=== PATIENT | female | born 1990 | race Caucasian/White ===

== ENCOUNTER 2016-06-10 12:12 | Day surgery (SDC) | payer OTHER ==
[2016-06-10] MEDS ORDERED: FENTANYL CITRATE INJ/PF 100 MCG/2 ML AMPUL ONE ×2 (12:37)
[2016-06-10] MEDS ORDERED: MIDAZOLAM 2 MG/2 ML INJ ONE (12:37)
[2016-06-10] MEDS ORDERED: DEXAMETHASONE SOD PHOS INJ 10 MG/1 ML VIAL ONE (12:38)
[2016-06-10] MEDS ORDERED: MORPHINE SULFATE 10 MG/ML INJ ONE (12:38)
[2016-06-10] MEDS ORDERED: ONDANSETRON HCL INJ/PF 4 MG/2 ML SDV ONE (12:38)
[2016-06-10] MEDS ORDERED: LIDOCAINE 2% INJ-PF (20 MG/ML) 10 ML AMPUL ONE (12:38)
[2016-06-10] MEDS ORDERED: PROPOFOL INJ 200 MG/20 ML VIAL IV ONE (12:38)
[2016-06-10] MEDS ORDERED: OXYMETAZOLINE HCL 0.05% NASAL SPRAY 15 ML BOTTLE ONE (12:38)
[2016-06-10] MEDS ORDERED: SUCCINYLCHOLINE CHLORIDE INJ 200 MG/10 ML VIAL ONE (12:39)
--- NOTE | 2016-06-10 14:23 | OPERATIVE REPORT E ---
Operative Report NAME: BARNEY JAMES : 1990 AGE: 25Y DATE OF SURGERY: 06/10/2016 ROOM: INDICATIONS FOR THE PROCEDURE: This is a 25-year-old female with a history of chronic tonsillitis. Please see her outpatient medical record for complete details regarding her history and examination. PREOPERATIVE DIAGNOSIS: Chronic tonsillitis. POSTOPERATIVE DIAGNOSIS: Chronic tonsillitis. PROCEDURE PERFORMED: Tonsillectomy. PRIMARY SURGEON: YANCY MCKEON M.D. FINDINGS: Bilateral, symmetric, and cryptic tonsils. ESTIMATED BLOOD LOSS: 2 mL. DESCRIPTION OF THE OPERATION: After properly identifying the patient, obtaining informed consent, and verifying the surgical site, the patient was brought to the main operating room and placed in the supine position, and general endotracheal anesthesia was obtained in the standard fashion. The bed was turned 90 degrees. The patient's neck was then extended via shoulder roll and draped in the usual manner. A formal surgical time-out was then called. Next, a Gary-Arron mouth gag with slotted tongue depressor was inserted, opened, and suspended from the Leon stand. There was no evidence of bifid uvula or submucosal cleft palate by inspection and palpation. An electrocautery-assisted tonsillectomy was then performed. The right tonsil was grasped with a curved Allis clamp and retracted medially. An incision was made at the superior pole. A subcapsular plane of dissection was then developed, and the tonsil was excised without complication. Hemostasis within the fossa was then obtained using suction cautery. A similar procedure was then performed for the patient's left tonsil. Oropharynx was irrigated with normal saline and suctioned dry. The mouth gag was removed. The mouth, teeth, lips, and gums were inspected and found to be free of any surgical trauma. The patient was then returned to Anesthesia. She was awoken in the operating room and taken to the PACU in stable condition having tolerated the procedure well. DICTATING PHYSICIAN: YANCY MCKEON M.D. [id number] PHY#: [id number] ID: [id number] JOB#: [id number] ACCT: [id number] cc:YANCY MCKEON M.D. >
[2016-06-10] MEDS ORDERED: OXYCODONE-ACETAMINOPHEN 5-325 MG TABLET ONE (14:26)
== END 2016-06-10 15:10 | disposition home or self-care (01) ==
LOC: SC 12:12
PROVIDERS: ATTEND Otolaryngology
PROC: 0CTPXZZ Resection of Tonsils, External Approach (ICD-10-PCS; principal; 2016-06-10 13:00)
DX: J35.01 Chronic tonsillitis (principal); J45.909 Unspecified asthma, uncomplicated; F90.9 Attention-deficit hyperactivity disorder, unspecified type; Z79.899 Other long term (current) drug therapy; Z87.891 Personal history of nicotine dependence
CPT/HCPCS: 88304 ×2; 42826; J2250; J3010; J3490 ×2; J0330; J2405; J2704; J1100; 170; J2270

== ENCOUNTER 2017-10-13 03:06 | Emergency (ER) | payer OTHER ==
--- NOTE | 2017-10-13 05:05 | ER Document Report ---
ED Medical Screen (RME) - General Chief Complaint: Abdominal Pain Stated Complaint: STOMACH PAIN Time Seen by Provider: 10/13/17 05:03 Mode of Arrival: Ambulatory Information source: Patient Notes: 27-year-old female patient presenting with chief complaint of abdominal pain, flank pain and vomiting. Patient reports that she woke up around midnight with severe mid to upper abdominal pain, bilateral flank pain and began vomiting. Patient denies any fever or urinary symptoms. Patient also reports several days of diarrhea. Exam: Tenderness to palpation to upper abdomen/epigastric area, no tenderness to palpation to right or left lower quadrants. No CVA tenderness. I have greeted and performed a rapid initial assessment of this patient. A comprehensive ED assessment and evaluation of the patient, analysis of test results and completion of the medical decision making process will be conducted by additional ED providers. Dictation of this chart was performed using voice recognition software; therefore, there may be some unintended grammatical errors. TRAVEL OUTSIDE OF THE [place] IN LAST 30 DAYS: No - Related Data Allergies/Adverse Reactions: No Known Allergies Allergy (Unverified 10/13/17 03:10) Past Medical History - Past Medical History Cardiac Medical History: Denies: Hx Heart Attack, Hx Hypertension Pulmonary Medical History: Reports: Hx Asthma - SPORTS INDUCED H[employer] SCHO[employer],NO PX SINCE ACTIVE DUTY Neurological Medical History: Denies: Hx Cerebrovascular Accident, Hx Seizures GI Medical History: Denies: Hx Hepatitis, Hx Hiatal Hernia, Hx Ulcer Infectious Medical History: Denies: Hx Hepatitis Past Surgical History: Denies: Hx Hysterectomy, Hx Mastectomy, Hx Open Heart Surgery, Hx Pacemaker Physical Exam - Vital signs Vitals: Temp Pulse Resp BP Pulse Ox 97.8 F 51 L 16 139/93 H 100 10/13/17 03:13 10/13/17 03:13 10/13/17 03:13 10/13/17 03:13 10/13/17 03:13 Course - Vital Signs Vital signs: Temp Pulse Resp BP Pulse Ox 97.8 F 51 L 16 139/93 H 100 10/13/17 03:13 10/13/17 03:13 10/13/17 03:13 10/13/17 03:13 10/13/17 03:13 Doctor's Discharge - Discharge Referrals: LENNY BRIONES PA [Primary Care Provider] - Follow up as needed
--- NOTE | 2017-10-13 05:25 | ER Document Report ---
ED GI/ - General Mode of Arrival: Ambulatory Information source: Patient TRAVEL OUTSIDE OF THE [place] IN LAST 30 DAYS: No <DOROTHY CALDWELL - Last Filed: 10/13/17 05:30> <YOHANNES LU - Last Filed: 10/13/17 06:55> <MADDY CALL - Last Filed: 10/24/17 20:59> - General Chief Complaint: Abdominal Pain Stated Complaint: STOMACH PAIN Time Seen by Provider: 10/13/17 05:03 Notes: 27 y.o female presents to the ED with abd pain. She reports some diarrhea of onset a couple days ago and the onset of epigastric abdominal pain and vomiting around midnight last night. She describes her epigastric pain as an aching pain and reports a movement of pain to her back bilaterally. Pt denies any fever. She denies ever having pain like this in the past. She reports taking Zoloft, Adderall and control at home regularly. 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 denies: Fever EENT: No symptoms reported Cardiovascular: No symptoms reported Respiratory: No symptoms reported Gastrointestinal: See HPI, Abdominal pain, Diarrhea, Nausea, Vomiting Genitourinary: No symptoms reported Female Genitourinary: No symptoms reported Musculoskeletal: Back pain Skin: No symptoms reported Hematologic/Lymphatic: No symptoms reported Neurological/Psychological: No symptoms reported -: Yes All other systems reviewed and negative <JAVI,DOROTHY - Last Filed: 10/13/17 05:30> Physical Exam <JAVIDOROTHY - Last Filed: 10/13/17 05:30> <YOHANNES LU - Last Filed: 10/13/17 06:55> <MADDY CALL - Last Filed: 10/24/17 20:59> - Vital signs Vitals: Temp Pulse Resp BP Pulse Ox 97.8 F 51 L 16 139/93 H 100 10/13/17 03:13 10/13/17 03:13 10/13/17 03:13 10/13/17 03:13 10/13/17 03:13 - Notes Notes: Physical Exam: General: Alert. HEENT: Normocephalic. Atraumatic. PERRL. Extraocular movements intact. Oropharynx clear. Neck: Supple. Non-tender. Respiratory: No respiratory distress. Clear and equal breath sounds bilaterally. Cardiovascular: Regular rate and rhythm. Abdominal: Tender to palpate epigastrium, no tenderness to RUQ. No guarding. No distension. Normal Bowel Sounds. Back: Non-tender to palpate bilateral lumbar back. Minimal tenderness to bilateral CVA percussion. No deformity or step off. Extremities: Moves all four extremities. Upper extremities: Normal inspection. Normal ROM. Lower extremities: Normal inspection. No edema. Normal ROM. Neurological: Normal cognition. AAOx3. Normal speech. Psychological: Normal affect. Normal Mood. Skin: Warm. Dry. Normal color. (DOROTHY CALDWELL) Course <JAVIDOROTHY - Last Filed: 10/13/17 05:30> - Laboratory Result Diagrams: 10/13/17 05:25 10/13/17 05:25 - Transfer of Care Care transferred to following provider: Dr. Gao <YOHANNES LU - Last Filed: 10/13/17 06:55> - Laboratory Result Diagrams: 10/13/17 05:25 10/13/17 05:25 <MADDY CALL - Last Filed: 10/24/17 20:59> - Vital Signs Vital signs: Temp Pulse Resp BP Pulse Ox 98.3 F 52 L 16 110/61 99 10/13/17 10:40 10/13/17 10:40 10/13/17 03:13 10/13/17 10:40 10/13/17 10:40 - Laboratory Laboratory results interpreted by me: 10/13/17 10/13/17 05:25 06:50 Glucose 114 H AST 657 H ALT 262 H Urine Ketones 20 H - Transfer of Care Notes: 10/13/17 06:55 Patient is pending gallbladder ultrasound prior to deciding if she needs hepatitis profile sent out. (YOHANNES LU) Discharge <DOROTHY CALDWELL - Last Filed: 10/13/17 05:30> <YOHANNES LU - Last Filed: 10/13/17 06:55> <MADDY CALL - Last Filed: 10/24/17 20:59> - Discharge Clinical Impression: Abdominal pain, Elevated liver enzymes Condition: Stable Disposition: HOME, SELF-CARE Instructions: Abdominal Pain ([facility]), Oral Narcotic Medication ([facility]), Pain Medication Injection ([facility]) Additional Instructions: Please follow-up with your medical coder evaluation. Return here for any worsening symptoms or concerns if symptoms are getting worse in the next 24 Prescriptions: Ondansetron [Zofran Odt 4 mg Tablet] 1 - 2 tab PO Q4H PRN #15 tab.rapdis PRN Reason: For Nausea/Vomiting Ranitidine HCl [Zantac] 150 mg PO BID 7 Days #14 tablet Forms: Return to Work Referrals: LENNY BRIONES PA [Primary Care Provider] - Follow up as needed Scribe Attestation: 10/13/17 05:32 I personally performed the services described in the documentation, reviewed and edited the documentation which was dictated to the scribe in my presence, and it accurately records my words and actions. (YOHANNES LU) Scribe Documentation - Scribe Written by Reggie:: Reggie Verduzco 10/13/1725 acting as scribe for :: Nicholas <DOROTHY CALDWELL - Last Filed: 10/13/17 05:30>
[2017-10-13] MEDS: NORMAL SALINE 1000 ML 1,000 ML IV ONE (05:28)
[2017-10-13] MEDS: ONDANSETRON HCL INJ/PF 4 MG/2 ML SDV IV ONE (05:28)
[2017-10-13 05:52] LABS: ABSOLUTE EOSINOPHILS # (AUTO) 0.1 10^3/uL (0.0-0.6); ABSOLUTE LYMPHOCYTES (AUTO) 1.5 10^3/uL (0.5-4.7); ABSOLUTE MONOCYTES (AUTO) 0.3 10^3/uL (0.1-1.4); ABSOLUTE NEUT (AUTO) 5.1 10^3/uL (1.7-8.2); BASOPHILS % (AUTO) 0.2 % (0-2); EOSINOPHILS % (AUTO) 0.9 % (0-6); HEMATOCRIT 42.9 % (36.0-47.0); LYMPHOCYTES % (AUTO) 21.6 % (13-45); MEAN CORPUSCULAR HEMOGLOBIN 31.3 pg (27.0-33.4); MEAN CORPUSCULAR VOLUME 89 fl (80-97); MONOCYTES % (AUTO) 4.3 % (3-13); PLATELET COUNT 286 10^3/uL (150-450); RED CELL DISTRIBUTION WIDTH 12.3 % (11.5-14.0); TOTAL CELLS COUNTED % (AUTO) 100 %
[2017-10-13 06:13] LABS: ALANINE AMINOTRANSFERASE 262 U/L (9-52); ALBUMIN 4.5 g/dL (3.5-5.0); ALKALINE PHOSPHATASE 38 U/L (38-126); ANION GAP 10 (5-19); ASPARTATE AMINO TRANSFERASE 657 U/L (14-36); BILIRUBIN,DIRECT 0.2 mg/dL (0.0-0.4); BILIRUBIN,TOTAL 0.7 mg/dL (0.2-1.3); BLOOD UREA NITROGEN 14 mg/dL (7-20); CALCIUM 9.3 mg/dL (8.4-10.2); CARBON DIOXIDE 29 mmol/L (22-30); CHLORIDE 104 mmol/L (98-107); GLUCOSE 114 mg/dL (75-110); LIPASE 88.7 U/L (23-300); POTASSIUM 4.4 mmol/L (3.6-5.0); SODIUM 143.3 mmol/L (137-145); TOTAL PROTEIN 7.2 g/dL (6.3-8.2)
[2017-10-13] MEDS: LIDOCAINE 2% VISCOUS SOLN 20 ML UDCUP PO ONE (06:36)
[2017-10-13] MEDS: MAG HYDROX/AL HYDROX/SIMETH SUSP 30 ML UDCUP PO ONE (06:36)
[2017-10-13 07:10] LABS: APPEARANCE,URINE CLEAR; BILIRUBIN,URINE NEGATIVE (NEGATIVE); COLOR,URINE YELLOW; GLUCOSE, URINE NEGATIVE (NEGATIVE); KETONES,URINE 20 mg/dL (NEGATIVE); LEUKOCYTE ESTERASE,URINE NEGATIVE (NEGATIVE); NITRITE,URINE NEGATIVE (NEGATIVE); PROTEIN,URINE NEGATIVE (NEGATIVE); URINE SPECIFIC GRAVITY 1.025; UROBILINOGEN,URINE NEGATIVE mg/dL (<2.0)
--- NOTE | 2017-10-13 07:36 | RADIOLOGY REPORT (SQ) ---
EXAM DESCRIPTION: US ABDOMEN LIMITED COMPLETED DATE/TME: 10/13/2017 06:20 CLINICAL HISTORY: elevated LFT's COMPARISON: None. TECHNIQUE: Real-time sonographic images of the right upper abdomen were obtained using a curved multihertz transducer. FINDINGS: Pancreas: The visualized portions of the pancreas are unremarkable. Vascular: The visualized portions of the aorta and IVC are unremarkable. Liver: The liver has normal contour and echogenicity. Hepatopedal flow in the portal vein confirmed with color and spectral Doppler imaging.. The common bile duct measures 0.3 cm. Gallbladder: The gallbladder has a normal appearance. No gallstones identified. No wall thickening or pericholecystic fluid. Negative reported sonographic Jefferson sign. Right Kidney: The right kidney measures 11.3 cm in length. No hydronephrosis, solid renal mass, or shadowing calculi. IMPRESSION: 1. No sonographic abnormality identified.
--- NOTE | 2017-10-13 08:44 | ER Document Report ---
ED General - General Chief Complaint: Abdominal Pain Stated Complaint: STOMACH PAIN Time Seen by Provider: 10/13/17 05:03 Mode of Arrival: Ambulatory Notes: Patient seen and evaluated after ultrasound results. Still having significant amount of epigastric pain. Please see Dr. Hurst's note for further details. Patient states that she has been having worsening abdominal pain for a few days. Him in for evaluation. Pain is located mostly in the epigastric region. Sometimes in the right upper quadrant. Nothing seems to make it better or worse. Denies any IV drug abuse, hepatitis exposures, heavy drinking. Patient is [employer] duty [employer]. On control currently. Pain is described as sharp and stabbing in the epigastric region. TRAVEL OUTSIDE OF THE [place] IN LAST 30 DAYS: No - HPI Onset: Yesterday Onset/Duration: Gradual, Worse Quality of pain: Achy, Throbbing Severity: Moderate Pain Level: 3 Associated symptoms: None - Related Data Allergies/Adverse Reactions: No Known Allergies Allergy (Unverified 10/13/17 03:10) Past Medical History - General Information source: Patient - Social History Smoking Status: Never Smoker Chew tobacco use (# tins/day): No Frequency of alcohol use: Social Drug Abuse: None Lives with: Family Family History: Reviewed & Not Pertinent Patient has suicidal ideation: No Patient has homicidal ideation: No - Past Medical History Cardiac Medical History: Denies: Hx Heart Attack, Hx Hypertension Pulmonary Medical History: 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 denies: Black stools, Rectal bleeding Genitourinary: No symptoms reported Female Genitourinary: No symptoms reported Musculoskeletal: No symptoms reported Skin: No symptoms reported Hematologic/Lymphatic: No symptoms reported Neurological/Psychological: No symptoms reported Physical Exam - Vital signs Vitals: Temp Pulse Resp BP Pulse Ox 97.8 F 51 L 16 139/93 H 100 10/13/17 03:13 10/13/17 03:13 10/13/17 03:13 10/13/17 03:13 10/13/17 03:13 Interpretation: Normal - General General appearance: Appears well, Alert - Respiratory Respiratory status: No respiratory distress Chest status: Nontender Breath sounds: Normal Chest palpation: Normal - Cardiovascular Rhythm: Regular Heart sounds: Normal auscultation Murmur: No - Abdominal Inspection: Normal Distension: No distension Bowel sounds: Normal Tenderness: Tender, Other - In the epigastric region. No significant guarding or rebound Organomegaly: No organomegaly - Neurological Neuro grossly intact: Yes Cognition: Normal Orientation: AAOx4 [place] Coma Scale Eye Opening: Spontaneous [place] Coma Scale Verbal: Oriented [place] Coma Scale Motor: Obeys Commands [place] Coma Scale Total: 15 Speech: Normal Motor strength normal: LUE, RUE, LLE, RLE Sensory: Normal - Skin Skin Temperature: Warm Skin Moisture: Dry Skin Color: Normal Course - Re-evaluation Re-evalutation: 10/13/17 08:43 Patient with significantly elevated liver function studies. Still having significant amount of pain. Redosed with some IV pain medication. Consulted with patient with regards to proceeding with further workup. Patient states that she would like to do what can be done to try and figure this out. I will do a limited CT scan of the abdomen and pelvis. Radiation exposure risks was explained to the patient. More likely patient will need to be seen by gastroenterology or surgeon as an outpatient. Patient does have access to medical care. Will add on acute hepatitis panel at this time as well. 10/13/17 10:32 At this time ultrasound and CT scan are unremarkable. Patient will need to be followed up by gastroenterology or surgery. Patient has access to [facility] advising her to follow-up with her medical records clerk for repeat labs and repeat evaluation. Advised to return here if symptoms are getting worse or no better within the next 24 hours. - Vital Signs Vital signs: Temp Pulse Resp BP Pulse Ox 97.8 F 51 L 16 139/93 H 100 10/13/17 03:13 10/13/17 03:13 10/13/17 03:13 10/13/17 03:13 10/13/17 03:13 - Laboratory Result Diagrams: 10/13/17 05:25 10/13/17 05:25 Laboratory results interpreted by me: 10/13/17 10/13/17 05:25 06:50 Glucose 114 H AST 657 H ALT 262 H Urine Ketones 20 H Discharge - Discharge Clinical Impression: Elevated liver enzymes Abdominal pain Qualifiers: Abdominal location: epigastric Qualified Code(s): R10.13 - Epigastric pain Condition: Stable Instructions: Abdominal Pain ([facility]), Pain Medication Injection ([facility]), Oral Narcotic Medication ([facility]) Additional Instructions: Please follow-up with your medical records clerk evaluation. Return here for any worsening symptoms or concerns if symptoms are getting worse in the next 24 Prescriptions: Ondansetron [Zofran Odt 4 mg Tablet] 1 - 2 tab PO Q4H PRN #15 tab.rapdis PRN Reason: For Nausea/Vomiting Ranitidine HCl [Zantac] 150 mg PO BID 7 Days #14 tablet Forms: Return to Work Referrals: LENNY BRIONES PA [Primary Care Provider] - Follow up as needed Scribe Attestation: 10/13/17 05:32 I personally performed the services described in the documentation, reviewed and edited the documentation which was dictated to the scribe in my presence, and it accurately records my words and actions.
[2017-10-13] MEDS: FENTANYL CITRATE INJ/PF 100 MCG/2 ML AMPUL IV ONE (08:53)
[2017-10-13] MEDS: FAMOTIDINE INJ/PF 20 MG/2 ML SDV IV ONE (08:54)
--- NOTE | 2017-10-13 09:41 | RADIOLOGY REPORT (SQ) ---
EXAM DESCRIPTION: CT ABD/PELVIS WITH IV ONLY COMPLETED DATE/TIME: 10/13/2017 9:27 am REASON FOR STUDY: ruq AND EPIGASTRIC PAIN , ELEVATED lft COMPARISON: Abdominal ultrasound dated 10/13/2017 TECHNIQUE: CT scan of the abdomen and pelvis performed using helical scanning technique with dynamic intravenous contrast injection. No oral contrast. Images reviewed with lung, soft tissue, and bone windows. Reconstructed coronal and sagittal MPR images reviewed. Delayed images for evaluation of the urinary system also acquired. All images stored on PACS. All CT scanners at this facility use dose modulation, iterative reconstruction, and/or weight based d osing when appropriate to reduce radiation dose to as low as reasonably achievable (ALARA). [facility]: Dose Right [facility]: CareDose [facility]: Dose Right [facility]: Teradose 4D [facility]: [employer] CONTRAST TYPE AND DOSE: contrast/concentration: Isovue 370.00 mg/ml; Total Contrast Delivered: 65.0 ml; Total Saline Delivered: 65.0 ml RENAL FUNCTION: None required. The patient is less than 50 years old. RADIATION DOSE: CT Rad equipment meets quality standard of care and radiation dose reduction techniq ues were employed. CTDIvol: 5.1 - 6.2 mGy. DLP: 607 mGy-cm.. LIMITATIONS: There is a relative paucity of mesenteric and retroperitoneal fat making delineation of abdominal and pelvic structures somewhat difficult. FINDINGS: LOWER CHEST: No significant findings. No nodules or infiltrates. LIVER: Normal size. No masses. No dilated ducts. SPLEEN: Normal size. No focal lesions. PANCREAS: No masses. No significant calcifications. No adjacent inflammation or peripancreatic fluid collections. Pancreatic duct not dilated. GALLBLADDER: No identified stones by CT criteria. No inflammatory changes to suggest cholecystitis. ADRENAL GLANDS: No significant masses or asymmetry. RIGHT KIDNEY AND URETER: No solid masses. No significant calcifications. No hydronephrosis or hyd roureter. LEFT KIDNEY AND URETER: No solid masses. No significant calcifications. No hydronephrosis or hydr oureter. AORTA AND VESSELS: No aneurysm. No dissection. Renal arteries, SMA, celiac without stenosis. RETROPERITONEUM: No retroperitoneal adenopathy, hemorrhage or masses. BOWEL AND PERITONEAL CAVITY: No masses or inflammatory changes. No free fluid or peritoneal masses. APPENDIX: Normal. PELVIS: No mass. No free fluid. Normal bladder. ABDOMINAL WALL: No masses. No hernias. BONES: No significant or acute findings. OTHER: No other significant finding. IMPRESSION: NO SIGNIFICANT OR ACUTE FINDING IN THE ABDOMEN OR PELVIS ON CT SCAN WITH IV CONTRAST. TECHNICAL DOCUMENTATION: JOB ID: [id number] Quality ID # [id number]: Final reports with documentation of one or more dose reduction techniques (e.g., Au tomated exposure control, adjustment of the mA and/or kV according to patient size, use of iterative reconstruction technique) 2010 [employer]- All Rights Reserved Reading location - IP/workstation name: [facility]
[2017-10-13 10:44] VITALS: BP 110/61
[2017-10-13] MEDS: HYDROCODONE/ACETAMINOPHEN 5-325 MG (6 TAB/ER DISP) PO PRN (10:45)
[2017-10-14 06:39] LABS: HEPATITIS A AB IGM Negative (Negative); HEPATITIS B CORE AB IGM Negative (Negative); HEPATITS B SURFACE ANTIGEN Negative (Negative)
[2017-10-14 08:15] LABS: HEPATITIS C VIRUS ANTIBODY <0.1 s/co ratio (0.0-0.9)
== END 2017-10-13 10:46 | disposition home or self-care (01) ==
LOC: ER 03:06
DX: R10.13 Epigastric pain (principal); R19.7 Diarrhea, unspecified; R11.2 Nausea with vomiting, unspecified; R74.8 Abnormal levels of other serum enzymes; R10.11 Right upper quadrant pain; J45.909 Unspecified asthma, uncomplicated; M54.9 Dorsalgia, unspecified; Z79.3 Long term (current) use of hormonal contraceptives; Z79.899 Other long term (current) drug therapy
CPT/HCPCS: 99284; 96361; 96374; 96375; 36415; 83690; 84703; 85025; 80053; 81001; 80074; 76705; 74177; J3010; J3490; J2405; J7030; S0028